=== PATIENT | male | born 1990 ===

== ENCOUNTER → 2019-05-11 | Outpatient (REF) | payer OTHER ==
[2019-05-11 14:16] LABS: SEMEN APPEARANCE OPAQUE (OPAQUE); SEMEN VISCOSITY LIQUID (LIQUID); SEMEN VOLUME 2.5 ml (2.0-5.0)
[2019-05-11 14:17] LABS: SPERM CONCENTRATION 35.1 M/ml (>=15.0); WBC CONCENTRATION >1 M/ml (<=1 M/ml)
== END ==
LOC: M LAB REF 14:08
PROVIDERS: ATTEND Physician Assistant
DX: N46.9 Male infertility, unspecified (principal)